=== PATIENT | male | born 1935 | race Caucasian/White ===

== ENCOUNTER → 2017-08-06 | Outpatient (CLI) | payer MEDICARE, OTHER ==
--- NOTE | 2017-08-06 10:10 | RADIOLOGY REPORT (SQ) ---
EXAM DESCRIPTION: CAROTID DOPPLER COMPLETED DATE/TIME: 08/06/2017 9:28 am REASON FOR STUDY: OCCLUSION AND STENOSIS R01.1 CARDIAC MURMUR, UNSPECIFIED R09.89 OTH SYMPTOMS AND SIGNS INVOLVING THE CIRC AND RESP SY COMPARISON: None. TECHNIQUE: Grayscale ultrasound, Doppler velocity and spectra, and color Doppler images acquired of the extra-cranial carotid and vertebral arteries. Images stored on PACS. LIMITATIONS: None. FINDINGS: RIGHT CAROTID CCA Velocities: Within normal limits. Atherosclerotic change with intimal thickening and spotty calc ific plaque ICA Velocities Peak systolic 0.83 m/s. End diastolic 0.22 m/s. Proximal ICA/CCA peak systolic ratio 1.0. Mixed calcific and noncalcific plaque partly shadows the proximal right internal carotid artery. Dis yanique to the shadowing plaque, velocities suggest against any flow significant stenosis in the right pr oximal ICA LEFT CAROTID CCA Velocities: Within normal limits. Atherosclerotic change with intimal thickening and spotty calc ific plaque. ICA Velocities Peak systolic 1.0 m/s. End diastolic 0.28 m/s. Proximal ICA/CCA peak systolic ratio 1.5. Mixed calcific and noncalcific plaque partly shadows the proximal left internal carotid artery. Dist al to the shadowing plaque, velocities suggest against any flow significant stenosis in the proximal left ICA. There is peak systolic velocity of 3 m/sec in the left external carotid artery suggesting greater temitope n 70% narrowing proximal left external carotid artery. VERTEBRAL ARTERIES: Antegrade flow. Normal waveforms. SUBCLAVIAN ARTERIES: Not evaluated OTHER: No other significant finding. IMPRESSION: Calcific shadowing plaque at the carotid bifurcations without flow significant stenosis of the proximal right or left internal carotid arteries. COMMENT: Quality ID #[id number]: Velocity criteria are extrapolated from the diameter data as defined by t he Society of Radiologists in Ultrasound Consensus Conference. Radiology 2003: 229; 340-346. TECHNICAL DOCUMENTATION: JOB ID: [id number] [employer]- All Rights Reserved
--- NOTE | 2017-08-06 18:17 | XCELERA REPORT ---
[address] [address] Transthoracic Echocardiogram Report Name: ELVIE SCHMITT Age: 81 yrs Gender: Male : 1935 Patient Status: Outpatient Patient Location: Study Date: 08/06/2017 08:12 AM Height: 66 in Weight: 140 lb BSA: 1.7 m2 Procedure: A complete two-dimensional transthoracic echocardiogram was performed (2D, M-mode, spectral and color flow Doppler). The study was technically difficult with many images being suboptimal in quality. Reason For Study: MURMUR Ordering Physician: SHERRILL WHITNEY Performed By: Arianna Sarabia Interpretation Summary The left ventricular ejection fraction is normal. There is mild concentric left ventricular hypertrophy. Doppler measurements suggest pseudonormalized left ventricular relaxation, which is associated with grade II/IV or mild to moderate diastolic dysfunction The left ventricle is grossly normal size. Wall motion cannot be accurately commented on, but no definite regional wall motion abnormalities noted. The right ventricle is mild to moderately dilated. The right ventricular systolic function is normal. The left atrium is mildly dilated. The right atrium is mildly dilated. There is a mild to moderate amount of mitral regurgitation There is no mitral valve stenosis. There is mild aortic stenosis There is a peak gradient of 20-25 mm of Hg. There is a trace amount of aortic regurgitation There is a trace to mild amount of tricuspid regurgitation There is mild pulmonary hypertension by echo Right ventricular systolic pressure is estimated to be elevated at 30- 40mmHg. The aortic root is not well visualized. The inferior vena cava was not well visualized There is no pericardial effusion. MMode/2D Measurements & Calculations RVDd: 4.2 cm LVIDd: 5.4 cm FS: 39.5 % Ao root diam: 3.7 cm IVSd: 1.1 cm LVIDs: 3.3 cm EDV(Teich): 143.4 ml LVPWd: 0.99 cm ESV(Teich): 43.8 ml Ao root area: 10.6 cm2 EF(Teich): 69.5 % LA dimension: 3.8 cm LVOT diam: 2.1 cm LVOT area: 3.3 cm2 Doppler Measurements & Calculations MV E max meliza: MV P1/2t max meliza: Ao V2 max: LV V1 max P.0 cm/sec 69.7 cm/sec 229.7 cm/sec 3.4 mmHg MV A max meliza: MV P1/2t: 100.6 msec Ao max PG: LV V1 mean P.9 cm/sec MVA(P1/2t): 2.2 cm2 21.1 mmHg 1.3 mmHg MV E/A: 0.53 MV dec slope: Ao V2 mean: LV V1 max: 202.9 cm/sec2 137.8 cm/sec 92.9 cm/sec Ao mean PG: LV V1 mean: 8.9 mmHg 48.9 cm/sec Ao V2 VTI: 47.1 cmLV V1 VTI: LOLA(I,D): 1.4 cm2 19.6 cm LOLA(V,D): 1.4 cm2 SV(LVOT): 65.7 ml PA V2 max: TR max meliza: 87.9 cm/sec 269.0 cm/sec PA max P.1 mmHg TR max P.9 mmHg Left Ventricle The left ventricle is grossly normal size. There is mild concentric left ventricular hypertrophy. The left ventricular ejection fraction is normal. Doppler measurements suggest pseudonormalized left ventricular relaxation, which is associated with grade II/IV or mild to moderate diastolic dysfunction. Wall motion cannot be accurately commented on, but no definite regional wall motion abnormalities noted. Right Ventricle The right ventricle is mild to moderately dilated. There is normal right ventricular wall thickness. The right ventricular systolic function is normal. Atria The right atrium is mildly dilated. The left atrium is mildly dilated. Mitral Valve There is moderate mitral annular calcification. There is no mitral valve stenosis. There is a mild to moderate amount of mitral regurgitation. Aortic Valve The aortic valve is moderately calcified. There is mild aortic stenosis. There is a peak gradient of 20-25 mm of Hg. There is a trace amount of aortic regurgitation. Tricuspid Valve The tricuspid valve is not well visualized, but is grossly normal. There is no tricuspid stenosis. There is a trace to mild amount of tricuspid regurgitation. There is mild pulmonary hypertension by echo. Right ventricular systolic pressure is estimated to be elevated at 30-40mmHg. Pulmonic Valve The pulmonic valve is not well visualized. Great Vessels The aortic root is not well visualized. The inferior vena cava was not well visualized. Effusions There is no pericardial effusion. : SHERRILL WHITNEY > Stas Azul
== END ==
LOC: SP 07:52
PROVIDERS: ATTEND Specialist
DX: I65.23 Occlusion and stenosis of bilateral carotid arteries (principal); R01.1 Cardiac murmur, unspecified
CPT/HCPCS: 93306; 93880

== ENCOUNTER → 2017-12-09 | Outpatient (CLI) | payer MEDICARE, OTHER ==
[2017-12-09 10:36] LABS: ABSOLUTE EOSINOPHILS # (AUTO) 0.4 10^3/uL (0.0-0.6); ABSOLUTE MONOCYTES (AUTO) 0.5 10^3/uL (0.1-1.4); ABSOLUTE NEUT (AUTO) 3.9 10^3/uL (1.7-8.2); BASOPHILS % (AUTO) 0.8 % (0-2); EOSINOPHILS % (AUTO) 7.6 % (0-6); HEMATOCRIT 35.7 % (37.9-51.0); HEMOGLOBIN 12.1 g/dL (13.5-17.0); LYMPHOCYTES % (AUTO) 16.8 % (13-45); MEAN CORPUSCULAR HEMOGLOBIN 32.7 pg (27.0-33.4); MEAN CORPUSCULAR VOLUME 96 fl (80-97); MONOCYTES % (AUTO) 8.3 % (3-13); PLATELET COUNT 255 10^3/uL (150-450); RED BLOOD COUNT 3.71 10^6/uL (4.35-5.55); RED CELL DISTRIBUTION WIDTH 14.3 % (11.5-14.0); SEGMENTED NEUTROPHILS % (AUTO) 66.5 % (42-78); TOTAL CELLS COUNTED % (AUTO) 100 %; WHITE BLOOD COUNT 5.8 10^3/uL (4.0-10.5)
[2017-12-09 11:01] LABS: ALANINE AMINOTRANSFERASE 23 U/L (21-72); ALBUMIN 3.3 g/dL (3.5-5.0); ALKALINE PHOSPHATASE 70 U/L (38-126); ANION GAP 7 (5-19); ASPARTATE AMINO TRANSFERASE 26 U/L (17-59); BILIRUBIN,DIRECT 0.4 mg/dL (0.0-0.4); BILIRUBIN,TOTAL 0.7 mg/dL (0.2-1.3); BLOOD UREA NITROGEN 16 mg/dL (7-20); CALCIUM 8.5 mg/dL (8.4-10.2); CARBON DIOXIDE 29 mmol/L (22-30); CHLORIDE 107 mmol/L (98-107); CHOLESTEROL 195.48 mg/dL (0-200); GLUCOSE 88 mg/dL (75-110); POTASSIUM 4.5 mmol/L (3.6-5.0); SODIUM 142.8 mmol/L (137-145); TOTAL PROTEIN 6.1 g/dL (6.3-8.2); TRIGLYCERIDES 52 mg/dL (<150)
[2017-12-09 11:12] LABS: DIRECT LDL 111 mg/dL (<100)
== END ==
LOC: OD 09:57
PROVIDERS: ATTEND Internal Medicine
DX: I10 Essential (primary) hypertension (principal); R53.83 Other fatigue; E78.5 Hyperlipidemia, unspecified; E53.9 Vitamin B deficiency, unspecified
CPT/HCPCS: 36415; 80053; 80061; 82607; 84443; 85025

== ENCOUNTER 2018-02-02 08:37 | Day surgery (SDC) | payer MEDICARE, OTHER ==
[~2018-02-02 08:37] MED LIST: MIDAZOLAM 2 MG/2 ML INJ ONE
[2018-02-02] MEDS ORDERED: KETOROLAC TROMETHAMINE 0.45% 4 DROP/0.4 ML DROPERETTE OS PRN (08:50)
[2018-02-02] MEDS: TROPICAMIDE 1% OPH SOLN 3 ML OS PRN ×3 (09:31→09:51)
[2018-02-02] MEDS: CYCLOPENTOLATE 0.2%/PHENYLEPHRINE 1% OPH SOLN 2 ML OS PRN ×3 (09:31→09:51)
[2018-02-02] MEDS: BESIFLOXACIN HCL 0.6% OPH SUSP 5 ML BOTTLE OS PRN ×4 (09:31→10:32)
[2018-02-02] MEDS: TETRACAINE HCL 0.5% OPH SOLN 0.6 ML DROPERETTE OS PRN ×2 (09:32→09:51)
[2018-02-02] MEDS: LIDOCAINE 4% INJ/PF (40 MG/ML) 5 ML AMPUL OS PRN ×2 (10:10)
[2018-02-02] MEDS: BUPIVACAINE HCL 0.75% INJ/PF (7.5 MG/1 ML) 10 ML SDV OS PRN ×2 (10:10)
[2018-02-02] MEDS: LIDOCAINE 1%/PHENYLEPHRINE 1.5% 1 ML VIAL ONE ×2 (10:14)
[2018-02-02] MEDS: CHONDR SU A NA/HYALUR INTRAOC KIT (SURGICARE) ONE ×2 (10:14)
[2018-02-02] MEDS: EPINEPHRINE INJ/PF 1 MG/1 ML AMPULE ONE ×2 (10:14)
--- NOTE | 2018-02-02 11:01 | [facility] OPERATIVE REPORT E ---
[facility] Operative Report NAME: ELVIE SCHMITT AGE: 82Y DATE OF SURGERY: 02/02/2018 ROOM: PREOPERATIVE DIAGNOSIS: CATARACT, LEFT EYE. POSTOPERATIVE DIAGNOSIS: CATARACT, LEFT EYE. PROCEDURE PERFORMED: PHACOEMULSIFICATION WITH POSTERIOR CHAMBER INTRAOCULAR LENS, LEFT EYE. SURGEON: AUGUSTINA BLANK MD ANESTHESIA: TOPICAL WITH MAC. INDICATIONS FOR SURGERY: Difficulty reading small print. Best corrected visual acuity 20/40. PROCEDURE: The patient was brought to the Operating Room and placed on the operative table. Following tetracaine drops, topical anesthesia was administered. This consisted of instrument wipe pledgets soaked in a solution of 4% Xylocaine mixed with 0.75% Marcaine in a 1:2 ratio. A 2 x 1 cm pledget was placed in the superior fornix. A 1 x 1 cm pledget was placed in the inferior fornix. The eye was patched shut for 5 minutes. The patch was removed. The eye was sterilely prepped and draped in the usual manner. Lid speculum was placed in the eye. The pledgets were removed. 4-0 black silk sutures were placed around the superior and the inferior rectus muscles to be used as traction. A conjunctival peritomy was made at the 10 o'clock position. Hemostasis was obtained with bipolar cautery. A posterior limbal groove was created using a crescent knife and dissected anteriorly towards the cornea. A sharp point blade was used to create a paracentesis site at the 2 o'clock position. A 2.4 mm keratome was used to enter the anterior chamber through the groove. Viscoelastic was injected into the anterior chamber. An anterior capsulotomy was performed using Utrata forceps in a capsulorrhexis fashion. Hydrodissection and hydrodelineation were performed. Phacoemulsification was performed in ahgdwq-lks-plugmwb technique. A total of 5.29 CBE was used. Following this, the I/A unit was used to remove residual cortex. Viscoelastic was injected into the capsular bag. Intraocular lens model [id number], 21.0 diopters, serial number [id number] was placed in the capsular bag. The I/A unit was used to remove residual viscoelastic. The wound was seen to be watertight under high and low pressure, and no sutures were placed. The intraocular lens was well centered. The pressure was adjusted in the eye to normal pressure. The 4-0 black silk sutures and lid speculum were removed. The eye was shielded after Besivance drops were placed. The patient tolerated the procedure well and was sent to the Recovery Room in good condition. DICTATING PHYSICIAN: AUGUSTINA BLANK M.D. DICTATING PHYSICIAN: AUGUSTINA BLANK M.D. [id number] PHY#: [id number] ID: [id number] JOB#: [id number] ACCT: [id number] cc:AUGUSTINA BLANK M.D. >
--- NOTE | 2018-02-02 11:06 | [facility] DISCHARGE SUMMARY E ---
[facility] Discharge Summary NAME: ELVIE SCHMITT AGE: 82Y ADMITTED: 02/02/2018 DISCHARGED: 02/02/2018 FINAL DIAGNOSIS: CATARACT, LEFT EYE. HOSPITAL COURSE: The patient is an 82-year-old gentleman who underwent uneventful cataract extraction with intraocular lens implant, left eye on 02/02/2018. He will be discharged to home. He is instructed to resume preoperative medications, take Tylenol as needed for discomfort, to keep his eye shielded, to use Besivance, Durezol and Ilevro at 3 p.m. and 8 p.m., and to follow up in my office in 1 day. DICTATING PHYSICIAN: AUGUSTINA BLANK M.D. [id number] PHY#: [id number] ID: [id number] JOB#: [id number] ACCT: [id number] cc:AUGUSTINA BLANK M.D. >
== END 2018-02-02 11:18 | disposition home or self-care (01) ==
LOC: SC 08:37
PROVIDERS: ATTEND Ophthalmology
DX: H25.813 Combined forms of age-related cataract, bilateral (principal); H57.03 Miosis; H40.023 Open angle with borderline findings, high risk, bilateral; I10 Essential (primary) hypertension; M19.90 Unspecified osteoarthritis, unspecified site; Z86.73 Personal history of transient ischemic attack (TIA), and cerebral infarction without residual deficits; D64.9 Anemia, unspecified; Z79.899 Other long term (current) drug therapy; Z79.82 Long term (current) use of aspirin; Z88.5 Allergy status to narcotic agent; Z87.891 Personal history of nicotine dependence
CPT/HCPCS: 66984; V2632; J2250; J3490 ×3; A9270; J0171; J2370; 142

== ENCOUNTER 2018-02-23 09:34 | Day surgery (SDC) | payer MEDICARE, OTHER ==
[~2018-02-23 09:34] MED LIST changes: +KETOROLAC TROMETHAMINE 0.45% 4 DROP/0.4 ML DROPERETTE OD PRN; -MIDAZOLAM 2 MG/2 ML INJ ONE
[2018-02-23] MEDS: TETRACAINE HCL 0.5% OPH SOLN 0.6 ML DROPERETTE OD PRN ×2 (11:08→11:48)
[2018-02-23] MEDS: TROPICAMIDE 1% OPH SOLN 3 ML OD PRN ×3 (11:08→11:24)
[2018-02-23] MEDS: BESIFLOXACIN HCL 0.6% OPH SUSP 5 ML BOTTLE OD PRN ×4 (11:08→12:16)
[2018-02-23] MEDS: CYCLOPENTOLATE 0.2%/PHENYLEPHRINE 1% OPH SOLN 2 ML OD PRN ×3 (11:08→11:23)
[2018-02-23] MEDS ORDERED: MIDAZOLAM 2 MG/2 ML INJ ONE (11:29)
[2018-02-23] MEDS: BUPIVACAINE HCL 0.75% INJ/PF (7.5 MG/1 ML) 10 ML SDV OD PRN ×2 (11:53)
[2018-02-23] MEDS: LIDOCAINE 4% INJ/PF (40 MG/ML) 5 ML AMPUL OD PRN ×2 (11:53)
[2018-02-23] MEDS: CHONDR SU A NA/HYALUR INTRAOC KIT (SURGICARE) ONE ×2 (12:03)
[2018-02-23] MEDS: EPINEPHRINE INJ/PF 1 MG/1 ML AMPULE ONE ×2 (12:03)
[2018-02-23] MEDS: LIDOCAINE 1%/PHENYLEPHRINE 1.5% 1 ML VIAL ONE ×2 (12:06)
--- NOTE | 2018-02-23 13:16 | [facility] OPERATIVE REPORT E ---
[facility] Operative Report NAME: ELVIE SCHMITT AGE: 82Y DATE OF SURGERY: 02/23/2018 ROOM: [facility] Operative Report PREOPERATIVE DIAGNOSIS: CATARACT, RIGHT EYE. POSTOPERATIVE DIAGNOSIS: CATARACT, RIGHT EYE. PROCEDURE PERFORMED: PHACOEMULSIFICATION WITH POSTERIOR CHAMBER INTRAOCULAR LENS, RIGHT EYE. SURGEON: AUGUSTINA BLANK MD ANESTHESIA: TOPICAL WITH MAC. INDICATIONS FOR SURGERY: Difficulty reading print on TV and glare at night. Best corrected vision 20/70. PROCEDURE: The patient was brought to the Operating Room and placed on the operative table. Following tetracaine drops, topical anesthesia was administered. This consisted of instrument wipe pledgets soaked in a solution of 4% Xylocaine mixed with 0.75% Marcaine in a 1:2 ratio. A 2 x 1 cm pledget was placed in the superior fornix. A 1 x 1 cm pledget was placed in the inferior fornix. The eye was patched shut for 5 minutes. The patch was removed. The eye was sterilely prepped and draped in the usual manner. Lid speculum was placed in the eye. The pledgets were removed. 4-0 black silk sutures were placed around the superior and the inferior rectus muscles to be used as traction. A conjunctival peritomy was made at the 10 o'clock position. Hemostasis was obtained with bipolar cautery. A posterior limbal groove was created using a crescent knife and dissected anteriorly towards the cornea. A sharp point blade was used to create a paracentesis site at the 2 o'clock position. A 2.4 mm keratome was used to enter the anterior chamber through the groove. Viscoelastic was injected into the anterior chamber. An anterior capsulotomy was performed using Utrata forceps in a capsulorrhexis fashion. Hydrodissection and hydrodelineation were performed. Phacoemulsification was performed in izetwu-szy-eusozhi technique. A total of 6.84 CDE phaco time was used. Following this, the I/A unit was used to remove residual cortex. Viscoelastic was injected into the capsular bag. Intraocular lens model SN60WF, 21.0 diopters, serial number [id number] was placed in the capsular bag. The I/A unit was used to remove residual viscoelastic. The wound was seen to be watertight under high and low pressure, and no sutures were placed. The intraocular lens was well centered. The pressure was adjusted in the eye to normal pressure. The 4-0 black silk sutures and lid speculum were removed. The eye was shielded after Besivance drops were placed. The patient tolerated the procedure well and was sent to the Recovery Room in good condition. DICTATING PHYSICIAN: AUGUSTINA BLANK M.D. DICTATING PHYSICIAN: AUGUSTINA BLANK M.D. [id number] PHY#: [id number] ID: [id number] JOB#: [id number] ACCT: [id number] cc:AUGUSTINA BLANK M.D. >
--- NOTE | 2018-02-23 13:16 | [facility] DISCHARGE SUMMARY E ---
[facility] Discharge Summary NAME: ELVIE SCHMITT AGE: 82Y ADMITTED: 02/23/2018 DISCHARGED: HOSPITAL COURSE: The patient is an 82-year-old gentleman who underwent uneventful cataract extraction with intraocular lens implant right eye on 02/23/2018. He will be discharged to home. He is instructed to resume medications. Take Tylenol as needed for discomfort. Keep his eye shielded. To use Besivance, Ilevro, and Durezol at 3:00 p.m. and 8:00 p.m. Follow up in my office in 1 day. DICTATING PHYSICIAN: AUGUSTINA BLANK M.D. [id number] PHY#: [id number] ID: [id number] JOB#: [id number] ACCT: [id number] cc:AUGUSTINA BLANK M.D. >
== END 2018-02-23 13:04 | disposition home or self-care (01) ==
LOC: SC 09:34
PROVIDERS: ATTEND Ophthalmology
DX: H25.811 Combined forms of age-related cataract, right eye (principal); Z96.1 Presence of intraocular lens; M19.90 Unspecified osteoarthritis, unspecified site; D64.9 Anemia, unspecified; I10 Essential (primary) hypertension; Z87.891 Personal history of nicotine dependence; Z79.82 Long term (current) use of aspirin; Z86.73 Personal history of transient ischemic attack (TIA), and cerebral infarction without residual deficits
CPT/HCPCS: 66984; V2632; J2250; J3490 ×3; A9270; J0171; J2370; 142

== ENCOUNTER → 2018-09-23 | Outpatient (CLI) | payer MEDICARE, OTHER ==
[2018-09-23 10:45] LABS: ABSOLUTE BASOPHILS # (AUTO) 0.1 10^3/uL (0.0-0.2); ABSOLUTE EOSINOPHILS # (AUTO) 0.7 10^3/uL (0.0-0.6); ABSOLUTE LYMPHOCYTES (AUTO) 0.9 10^3/uL (0.5-4.7); ABSOLUTE MONOCYTES (AUTO) 0.6 10^3/uL (0.1-1.4); ABSOLUTE NEUT (AUTO) 5.7 10^3/uL (1.7-8.2); BASOPHILS % (AUTO) 1.4 % (0-2); EOSINOPHILS % (AUTO) 8.4 % (0-6); HEMATOCRIT 35.4 % (37.9-51.0); HEMOGLOBIN 11.9 g/dL (13.5-17.0); LYMPHOCYTES % (AUTO) 11.6 % (13-45); MEAN CORPUSCULAR HEMOGLOBIN 32.6 pg (27.0-33.4); MEAN CORPUSCULAR HGB CONC 33.7 g/dL (32.0-36.0); MEAN CORPUSCULAR VOLUME 97 fl (80-97); MONOCYTES % (AUTO) 7.1 % (3-13); PLATELET COUNT 319 10^3/uL (150-450); RED BLOOD COUNT 3.66 10^6/uL (4.35-5.55); RED CELL DISTRIBUTION WIDTH 14.4 % (11.5-14.0); SEGMENTED NEUTROPHILS % (AUTO) 71.5 % (42-78); TOTAL CELLS COUNTED % (AUTO) 100 %; WHITE BLOOD COUNT 7.9 10^3/uL (4.0-10.5)
[2018-09-23 11:06] LABS: ALANINE AMINOTRANSFERASE 18 U/L (21-72); ALBUMIN 3.3 g/dL (3.5-5.0); ALKALINE PHOSPHATASE 70 U/L (38-126); ANION GAP 5 (5-19); ASPARTATE AMINO TRANSFERASE 21 U/L (17-59); BILIRUBIN,DIRECT 0.3 mg/dL (0.0-0.4); BILIRUBIN,TOTAL 0.7 mg/dL (0.2-1.3); BLOOD UREA NITROGEN 15 mg/dL (7-20); CALCIUM 9.1 mg/dL (8.4-10.2); CARBON DIOXIDE 29 mmol/L (22-30); CHLORIDE 106 mmol/L (98-107); GLUCOSE 93 mg/dL (75-110); POTASSIUM 4.9 mmol/L (3.6-5.0); SODIUM 139.6 mmol/L (137-145); TOTAL PROTEIN 6.5 g/dL (6.3-8.2); TRIGLYCERIDES 71 mg/dL (<150)
[2018-09-23 11:17] LABS: DIRECT LDL 126 mg/dL (<100)
== END ==
LOC: OD 09:20
PROVIDERS: ATTEND Internal Medicine
DX: E78.5 Hyperlipidemia, unspecified (principal); K21.9 Gastro-esophageal reflux disease without esophagitis; D64.9 Anemia, unspecified; K92.2 Gastrointestinal hemorrhage, unspecified
CPT/HCPCS: 36415; 80053; 80061; 84443; 85025

== ENCOUNTER 2020-02-08 17:17 | Emergency (ER) | payer MEDICARE, OTHER ==
--- NOTE | 2020-02-08 17:39 | ER Document Report ---
ED Medical Screen (RME) - General Chief Complaint: Slurred Speech Stated Complaint: SLURRED SPEECH,FALLS ASLEEP Time Seen by Provider: 02/08/20 17:27 Primary Care Provider: BHUPENDRA DEL CID MD [Primary Care Provider] - Follow up as needed Mode of Arrival: Ambulatory Information source: Patient Notes: 84-year-old male presents to ED because he was sent to the ED by Dr. Del Cid for rule out TIA versus UTI or if he is taking too much meclizine. states that he has not been acting his normal self and has been falling asleep. According to the Bhupendra Del Cid MD that there was blood in his urine when he was seen at the doctor's office today. According the patient he is not having any pain or discomfort except for the chronic pain in his hand especially his right hand. There is a note in his chart from Dr. Jennifer MD to get evaluated as stated above for TIA versus UTI versus taking too much meclizine. I have greeted and performed a rapid initial assessment of this patient. A comprehensive ED assessment and evaluation of the patient, analysis of test results and completion of medical decision making process will be conducted by an additional ED providers. TRAVEL OUTSIDE OF THE [place] IN LAST 30 DAYS: No - Related Data Allergies/Adverse Reactions: morphine [Morphine] Allergy (Severe, Verified 02/08/20 17:28) vomitng Past Medical History - Past Medical History Cardiac Medical History: Reports: Hx Coronary Artery Disease, Hx Hypercholesterolemia, Hx Hypertension Denies: Hx Heart Attack Pulmonary Medical History: Denies: Hx Asthma, Hx Tuberculosis Neurological Medical History: Denies: Hx Cerebrovascular Accident, Hx Seizures Renal/ Medical History: Reports: Hx Benign Prostatic Hyperplasia, Hx Kidney Stones GI Medical History: Denies: Hx Hepatitis, Hx Hiatal Hernia, Hx Ulcer Psychiatric Medical History: Denies: Hx Depression Infectious Medical History: Denies: Hx Hepatitis Past Surgical History: Reports: Hx Abdominal Surgery - part of stomach removed, Hx Cardiac Catheterization - Patient had a cardiac cath done in [place] the plan to place a stent but they found he had developed adequate collaterals around the obstruction so the stent was not placed., Hx Cholecystectomy. Denies: Hx Open Heart Surgery, Hx Pacemaker - Immunizations Hx Diphtheria, Pertussis, Tetanus Vaccination: Yes Doctor's Discharge - Discharge Referrals: BHUPENDRA DEL CID MD [Primary Care Provider] - Follow up as needed
[2020-02-08 18:28] LABS: ABSOLUTE BASOPHILS # (AUTO) 0.1 10^3/uL (0.0-0.2); ABSOLUTE EOSINOPHILS # (AUTO) 0.3 10^3/uL (0.0-0.6); ABSOLUTE LYMPHOCYTES (AUTO) 1.3 10^3/uL (0.5-4.7); ABSOLUTE MONOCYTES (AUTO) 0.9 10^3/uL (0.1-1.4); ABSOLUTE NEUT (AUTO) 5.9 10^3/uL (1.7-8.2); BASOPHILS % (AUTO) 1.1 % (0-2); HEMATOCRIT 37.4 % (37.9-51.0); HEMOGLOBIN 12.5 g/dL (13.5-17.0); LYMPHOCYTES % (AUTO) 15.1 % (13-45); MEAN CORPUSCULAR HEMOGLOBIN 33.2 pg (27.0-33.4); MEAN CORPUSCULAR HGB CONC 33.4 g/dL (32.0-36.0); MEAN CORPUSCULAR VOLUME 99 fl (80-97); PLATELET COUNT 320 10^3/uL (150-450); RED BLOOD COUNT 3.77 10^6/uL (4.35-5.55); RED CELL DISTRIBUTION WIDTH 13.6 % (11.5-14.0); SEGMENTED NEUTROPHILS % (AUTO) 69.8 % (42-78); TOTAL CELLS COUNTED % (AUTO) 100 %; WHITE BLOOD COUNT 8.5 10^3/uL (4.0-10.5)
--- NOTE | 2020-02-08 18:31 | RADIOLOGY REPORT (SQ) ---
EXAM DESCRIPTION: CT HEAD WITHOUT IMAGES COMPLETED DATE/TIME: 02/08/2020 6:20 pm REASON FOR STUDY: Altered mental status COMPARISON: 04/23/2016 TECHNIQUE: Axial images acquired through the brain without intravenous contrast. Images reviewed wi th bone, brain and subdural windows. Additional sagittal and coronal reconstructions were generated. Images stored on PACS. All CT scanners at this facility use dose modulation, iterative reconstruction, and/or weight based d osing when appropriate to reduce radiation dose to as low as reasonably achievable (ALARA). [facility]: Dose Right [facility]: CareDose [facility]: Dose Right [facility]: Teradose 4D [facility]: Smart [employer] RADIATION DOSE: CT Rad equipment meets quality standard of care and radiation dose reduction techniq ues were employed. CTDIvol: 53.2 mGy. DLP: 991 mGy-cm. mGy. LIMITATIONS: None. FINDINGS: VENTRICLES: Normal size and contour. CEREBRUM: No masses. No hemorrhage. No midline shift. No evidence for acute infarction. Areas of l ow density in the white matter most likely chronic small vessel ischemic changes. CEREBELLUM: No masses. No hemorrhage. No alteration of density. No evidence for acute infarction. EXTRAAXIAL SPACES: No fluid collections. No masses. ORBITS AND GLOBE: No intra- or extraconal masses. Normal contour of globe without masses. CALVARIUM: No fracture. PARANASAL SINUSES: No fluid or mucosal thickening. SOFT TISSUES: No mass or hematoma. OTHER: No other significant finding. IMPRESSION: CHRONIC MICROVASCULAR ISCHEMIA. NO ACUTE IMAGING FINDINGS IN THE BRAIN. EVIDENCE OF ACUTE STROKE: NO. COMMENT: Quality ID # [id number]: Final reports with documentation of one or more dose reduction techniques (e.g., Automated exposure control, adjustment of the mA and/or kV according to patient size, use of iterative reconstruction technique) TECHNICAL DOCUMENTATION: JOB ID: [id number] 2010 [employer]- All Rights Reserved Reading location - IP/workstation name: [email or web address]
[2020-02-08 18:33] LABS: INTERNATIONAL RATION (INR) 1.07; PROTHROMBIN TIME 14.2 SEC (11.4-15.4)
[2020-02-08 18:49] LABS: ALBUMIN 3.9 g/dL (3.5-5.0); ALKALINE PHOSPHATASE 85 U/L (38-126); ANION GAP 5 (5-19); ASPARTATE AMINO TRANSFERASE 22 U/L (17-59); BILIRUBIN,DIRECT 0.4 mg/dL (0.0-0.4); BILIRUBIN,TOTAL 0.5 mg/dL (0.2-1.3); BLOOD UREA NITROGEN 15 mg/dL (7-20); CALCIUM 9.1 mg/dL (8.4-10.2); CARBON DIOXIDE 29 mmol/L (22-30); CHLORIDE 106 mmol/L (98-107); GLUCOSE 96 mg/dL (75-110); POTASSIUM 4.8 mmol/L (3.6-5.0); TOTAL PROTEIN 7.1 g/dL (6.3-8.2)
--- NOTE | 2020-02-08 22:05 | ER Document Report ---
ED General - General Chief Complaint: Altered Mental Status Stated Complaint: SLURRED SPEECH,FALLS ASLEEP Time Seen by Provider: 02/08/20 17:27 Primary Care Provider: BHUPENDRA DEL CID MD [Primary Care Provider] - Follow up tomorrow Mode of Arrival: Ambulatory Notes: Patient is an 84-year-old male that comes emergency department after he was instructed to come in for evaluation by Dr. Del Cid. There was concern for possible TIA versus altered mental status. There is also concern that he was possibly taking too much of his meclizine. At bedside is patient's sadie, apparently was here earlier and was stating that patient seemed like he was not acting his normal self today and has been falling asleep frequently. Sadie also reports that there was an episode in the car that his stated patient seemed like he could not move appropriately and was unable to speak. Patient does recall a period of time earlier where he felt like "I just could not talk". Patient denies headache, focal numbness or weakness, visual changes, fever, cough, or any pain. Patient is not on his aspirin or his blood pressure medication because he is supposed to be holding these for injection in his back tomorrow for chronic back pain. Patient does not have an extensive medical history, his medications at bedside are Tylenol, diclofenac topical, meclizine, but he does not have his blood pressure medication with him. No history of OK, CAD, or blood clot although patient states that he was told that he had a "small stroke" in the past. He wears hearing aids. TRAVEL OUTSIDE OF THE [place] IN LAST 30 DAYS: No - Related Data Allergies/Adverse Reactions: morphine [Morphine] Allergy (Severe, Verified 02/08/20 17:28) vomitng Home Medications: diclofenac gel, asa, Past Medical History - General Information source: Patient, Relative - Social History Smoking Status: Never Smoker Chew tobacco use (# tins/day): No Frequency of alcohol use: None Drug Abuse: None Lives with: Family Family History: Reviewed & Not Pertinent Patient has homicidal ideation: No - Past Medical History Cardiac Medical History: Reports: Hx Coronary Artery Disease, Hx Hypercholesterolemia, Hx Hypertension Denies: Hx Heart Attack Pulmonary Medical History: Denies: Hx Asthma, Hx Tuberculosis Neurological Medical History: Denies: Hx Cerebrovascular Accident, Hx Seizures Renal/ Medical History: Reports: Hx Benign Prostatic Hyperplasia, Hx Kidney Stones GI Medical History: Denies: Hx Hepatitis, Hx Hiatal Hernia, Hx Ulcer Psychiatric Medical History: Denies: Hx Depression Infectious Medical History: Denies: Hx Hepatitis Past Surgical History: Reports: Hx Abdominal Surgery - part of stomach removed, Hx Cardiac Catheterization - Patient had a cardiac cath done in [place] the plan to place a stent but they found he had developed adequate collaterals around the obstruction so the stent was not placed., Hx Cholecystectomy. Denies: Hx Open Heart Surgery, Hx Pacemaker - Immunizations Hx Diphtheria, Pertussis, Tetanus Vaccination: Yes Review of Systems - Review of Systems Constitutional: See HPI EENT: No symptoms reported Cardiovascular: No symptoms reported Respiratory: No symptoms reported Gastrointestinal: No symptoms reported Genitourinary: No symptoms reported Male Genitourinary: No symptoms reported Musculoskeletal: No symptoms reported Skin: No symptoms reported Hematologic/Lymphatic: No symptoms reported Neurological/Psychological: See HPI Physical Exam - Vital signs Vitals: Temp Pulse Resp BP Pulse Ox 98.3 F 54 L 14 144/62 H 95 02/08/20 17:27 02/08/20 17:27 02/08/20 17:27 02/08/20 17:27 02/08/20 17:27 - Notes Notes: GENERAL: Alert, interacts well. No acute distress. HEAD: Normocephalic, atraumatic. EYES: Pupils equal, round, and reactive to light. Extraocular movements intact. ENT: Oral mucosa moist, tongue midline. Oropharynx unremarkable. Airway patent. Nares patent, sinuses non-tender; hearing aids present. NECK: Full range of motion. Supple. Trachea midline. No lymphadenopathy. LUNGS: Clear to auscultation bilaterally, no wheezes, rales, or rhonchi. No respiratory distress. Non-tender chest wall. HEART: Regular rate and rhythm. No murmur ABDOMEN: Soft, non-tender. Non-distended. Bowel sounds present in all 4 quadrants. Old midline scar. GENITOURINARY: No swelling, erythema, or concerning findings. EXTREMITIES: Moves all 4 extremities spontaneously. No edema, normal radial and dorsalis pedis pulses bilaterally. No cyanosis. BACK: no cervical, thoracic, lumbar midline tenderness. No saddle anesthesia, normal distal neurovascular exam. Moves all extremities in full range of motion. NEUROLOGICAL: Alert and oriented x3. Normal speech. Cranial nerves II through XII grossly intact. Strength 5/5 in all extremities. PSYCH: Normal affect, normal mood. SKIN: Warm, dry, normal turgor. No rashes or lesions noted. Course - Re-evaluation Re-evalutation: Patient is alert, completely oriented, responsive, well appearing, interactive. He is bradycardic but this is similar to prior. He is not tachycardic, febrile, or hypotensive. Blood pressure is borderline to hypertensive but he is currently off his blood pressure medication pending his appointment tomorrow. He denies headache or chest pain. His neurological exam is normal. It is difficult to get a straight answer from patient and family about what happened earlier, when I asked again they stated it almost looked like he was having a "spasm" in the right side of his face. I cannot get any concrete neurological deficits reported and patient when I asked again states he was fine. Patient is alert and oriented x3. Patient was able to ambulate without any difficulty. CT of the head unremarkable, chest x-ray unremarkable, CBC, chemistry, troponin, EKG, urinalysis without concerning findings. Because of possible TIA earlier although this is not definite I did recommend admission to the hospital for monitoring and re-stratification. I discussed this with patient and family. However patient states that he would prefer to be discharged home, call his primary care provider tomorrow, and that he does agree that he will follow-up within 2 days. He states that he will return for any concerning or worsening symptoms, family states agreement with this, patient was discharged with return precautions. - Vital Signs Vital signs: Temp Pulse Resp BP Pulse Ox 98.3 F 50 L 19 135/63 H 97 02/08/20 23:26 02/08/20 21:52 02/08/20 23:25 02/08/20 23:26 02/08/20 23:25 - Laboratory Result Diagrams: 02/08/20 18:00 02/08/20 18:00 Laboratory results interpreted by me: 02/08/20 02/08/20 18:00 21:10 RBC 3.77 L Hgb 12.5 L Hct 37.4 L MCV 99 H Urine Ketones 20 H Urine Urobilinogen 2.0 H Urine Ascorbic Acid 40 H - EKG Interpretation by Me Additional EKG results interpreted by me: EKG showed a sinus bradycardia at a rate of 50, left axis deviation, left anterior fascicular block, no T wave inversions or ST segment changes in consecutive leads. QTc 438, no significant change from prior. Discharge - Discharge Clinical Impression: Transient alteration of awareness Condition: Stable Disposition: HOME, SELF-CARE Additional Instructions: Your work-up today does not show any concerning findings, your evaluation is reassuring. At this time it is not certain what happened earlier today, it is possible that you did have a mini stroke, however this is not definite. You have chosen to follow-up closely with your primary care provider instead of admission tonight, please call Dr. Del Cid in the morning to follow-up within 2 days. Return if you worsen including headache, passing out, weakness on one side of your body, fever, or any other concerning or worsening symptoms. Forms: Elevated Blood Pressure Referrals: BHUPENDRA DEL CID MD [Primary Care Provider] - Follow up tomorrow
[2020-02-08 22:29] LABS: APPEARANCE,URINE SLIGHTLY-CLOUDY; BILIRUBIN,URINE NEGATIVE (NEGATIVE); COLOR,URINE YELLOW; GLUCOSE, URINE NEGATIVE (NEGATIVE); KETONES,URINE 20 mg/dL (NEGATIVE); LEUKOCYTE ESTERASE,URINE NEGATIVE (NEGATIVE); NITRITE,URINE NEGATIVE (NEGATIVE); PROTEIN,URINE NEGATIVE (NEGATIVE); URINE SPECIFIC GRAVITY 1.023
[2020-02-08 22:31] LABS: ADD MANUAL MICROSCOPIC YES
--- NOTE | 2020-02-08 22:42 | RADIOLOGY REPORT (SQ) ---
CLINICAL INDICATION: generalized weakness. TECHNIQUE: A single portable AP view was obtained of the chest at 2221 hours. COMPARISON: None available. FINDINGS: The cardiomediastinal silhouette is enlarged with an LVH configuration. The aorta is tortuous. Vascular calcification.. The lungs are grossly clear. No evidence of effusion or pneumothorax. The visualized bones are unremarkable. IMPRESSION: No evidence of active intrathoracic disease.
[2020-02-08 23:03] LABS: WBC,URINE RARE /HPF
[2020-02-08 23:33] VITALS: BP 135/63
--- NOTE | 2020-02-09 10:13 | EKG REPORT ---
SEVERITY:- ABNORMAL ECG - SINUS RHYTHM LEFT ANTERIOR FASCICULAR BLOCK : Confirmed by: Sandra Cardoza MD 09-Feb-2020 10:13:08
== END 2020-02-08 23:31 | disposition home or self-care (01) ==
LOC: ER 17:17
DX: R40.4 Transient alteration of awareness (principal); I10 Essential (primary) hypertension; R00.1 Bradycardia, unspecified; I44.4 Left anterior fascicular block; Z79.899 Other long term (current) drug therapy
CPT/HCPCS: 36415; 70450; 71045; 80053; 81001; 83690; 84484; 85025; 85610; 85730; 87086; 93005; 93010; 99285